=== PATIENT | female | born 1985 | race Caucasian/White ===

== ENCOUNTER 2016-10-31 14:28 | Emergency (ER) | payer MEDICAID ==
[~2016-10-31] VITALS: Ht 177.8 cm; Wt 122.2 kg
[~2016-10-31 14:28] MED LIST: ACHYD1T PO; ALPR1T PO; AMIT50TA3 PO; BCP; CALC1TAB29; CEFP500T4 PO; CEPH500C PO; CLIN-62 PO; CLIN300C3 PO; CLINDAMYCIN PO; DCS100C PO; DESV100T PO; DOXY100C2 PO; GFCD10B PO; HYDR-3729 PO; IBP800T PO; IBUP-2055 PO; LANS30CA8 PO; METH4TAB PO; METR500T PO; NITR-65 PO; NITR100C3 PO; PNV1CAPS13; PREN1TAB14 PO; TOPI50TA37 PO; TRIA16.5 NS; VANCADD1 IV
[2016-10-31] MEDS ORDERED: KETOROLAC 60 MG/2 ML VIAL IM STA (14:57)
[2016-10-31] MEDS ORDERED: guaiFENesin (MUCINEX) 600 MG TAB PO ONE (15:45)
--- NOTE | 2016-10-31 15:47 | ED EENT ---
History of Present Illness General Chief Complaint: Oral/Throat Problems Stated Complaint: DIFFICULTY BREATHING,THROAT PROBLEMS Nursing Triage Note: AMB TO ROOM C/O SORETHRAOT X3 DAYS THROAT RED History of Present Illness Time seen by provider: 14:30 Initial Comments Evaluation for cough and sore throat. She has a history of allergic rhinitis and is taking Claritin. Timing/Duration: intermittent, other (3 days) Severity: moderate Location: throat Prearrival Treatment: over the counter meds Modifying Factors: Improves With Rest Associated Symptoms: cough, No facial pain/swelling, nasal congestion/drainage , poor fluid intake, poor solids intake, No sinus infection, sore throat, No tooth pain, No voice change Allergies and Home Medications Allergies Coded Allergies: Penicillins (Verified Allergy, Severe, HIVES, CAN'T BREATHE, 08/06/12) latex (Verified Allergy, Unknown, 08/06/12) Home Medications Hydrocodone/Acetaminophen 1 Each Tablet, 1-2 EACH PO Q6H PRN for PAIN, #30 Prescribed by: LIBERTY VELA on 07/24/15 1240 Ibuprofen 200 Mg Tablet, 800 MG PO Q6H PRN for PAIN, (Reported) take 4 (200mg) tabs Topiramate 50 Mg Tablet, 50 MG PO BID, (Reported) Review of Systems Constitutional: no symptoms reported, see HPI Eyes: No Symptoms Reported, See HPI Ears: No Symptoms Reported, See HPI Nose: see HPI, clear discharge Mouth: no symptoms reported, see HPI Throat: no symptoms reported, see HPI Respiratory: see HPI, cough Cardiovascular: no symptoms reported, see HPI Gastrointestinal: no symptoms reported, see HPI Musculoskeletal: no symptoms reported, see HPI Skin: no symptoms reported, see HPI Neurological: No Symptoms Reported, See HPI Hematologic/Lymphatic: No Symptoms Reported, See HPI Immunological/Allergic: no symptoms reported, see HPI All Other Systems Reviewed Negative Unless Noted: Yes Past Htjhwat-Ddfmgr-Nvbyrw Hx Patient Social History Alcohol Use: Denies Use Recreational Drug Use: No Smoking Status: Current Everyday Smoker Recent Foreign Travel: No Contact w/Someone Who Travel: No Recent Infectious Disease Expo: No Recent Hopitalizations: Yes Immunizations Up To Date Date of Influenza Vaccine: Feb 24, 2012 Surgeries HX Surgeries: Yes (C/S X3) Respiratory Hx Respiratory Disorders: No Cardiovascular Hx Cardiac Disorders: No Neurological Hx Neurological Disorders: No Reproductive System Hx Reproductive Disorders: Yes Sexually Transmitted Disease: No Genitourinary Hx Genitourinary Disorders: No Gastrointestinal Hx Gastrointestinal Disorders: No Musculoskeletal Hx Musculoskeletal Disorders: No Endocrine Hx Endocrine Disorders: No HEENT HX ENT Disorders: Yes (NO TEETH) Cancer Hx Cancer: No Psychosocial Hx Psychiatric Problems: No Integumentary HX Skin/Integumentary Disorder: No Blood Transfusions Hx Blood Disorders: No Physical Exam Vital Signs Vital Sign - Last 12Hours 10/31/16 14:32 Temp 98.1 Pulse 80 Resp 18 B/P (MAP) 166/87 Pulse Ox 98 O2 Delivery Room Air General Appearance: WD/WN, no apparent distress Eyes: bilateral eye EOMI, bilateral eye PERRL, bilateral eye normal inspection Ears: bilateral ear TM normal, bilateral ear auricle normal, bilateral ear canal normal Nose: normal inspection, No sinus tenderness Mouth/Throat: normal mouth inspection, pharynx normal, No dental tenderness, No excessive drooling, No tonsillar exudate, No tonsillar swelling, No uvula swelling, No voice changes, other (clear postnasal drainage noted) Neck: non-tender, full range of motion, supple, normal inspection, No lymphadenopathy (R), No lymphadenopathy (L) Cardiovascular: normal peripheral pulses, regular rate, rhythm, no edema Respiratory: chest non-tender, lungs clear, normal breath sounds, no respiratory distress Gastrointestinal: normal bowel sounds, non tender, soft, no organomegaly, no pulsatile mass Neurologic/Psychiatric: no motor/sensory deficits, alert, normal mood/affect, oriented x 3 Skin: normal color, warm/dry Progress/Results/Core Measures Results/Orders Lab Results Laboratory Tests Test 10/31/16 14:43 Range/Units Group A Streptococcus Screen NEGATIVE NEGATIVE My Orders Orders - REMEDIOS DANGELO Rapid Strep A Screen (10/31/16 14:46) Ketorolac Injection (Toradol Injection) (10/31/16 14:57) Guaifenesin Tablet (Mucinex Tablet) (10/31/16 15:45) Medications Given in ED Current Medications Medications Dose Ordered Sig/Zoraida Route Start Time Stop Time Status Last Admin Dose Admin Guaifenesin 600 mg ONCE ONCE PO 10/31/16 15:45 10/31/16 15:46 DC 10/31/16 16:11 600 MG Vital Signs/I&O Vital Sign - Last 12Hours 10/31/16 10/31/16 14:32 16:10 Temp 98.1 98.1 Pulse 80 80 Resp 18 18 B/P (MAP) 166/87 Pulse Ox 98 98 O2 Delivery Room Air Blood Pressure Mean: 113 Departure Impression Impression: Primary Impression: Allergic rhinitis Qualified Codes: J30.2 - Other seasonal allergic rhinitis Additional Impression: Cough Disposition: HOME, SELF-CARE Condition: Improved Departure-Patient Inst. Decision time for Depature: 15:30 Referrals: MARIAM JOSHI MD (PCP/Family) Primary Care Physician Patient Instructions: Cough, Adult (DC), Seasonal Allergies (DC) Add. Discharge Instructions: Warm salt water gargles, every 2 hours. Continue taking Claritin. Use [id number]-exxpzyp Mucinex as directed. Increase water intake. Sinus rinse, every 3-4 hours. Follow-up with Dr. Joshi next week if symptoms persist. Alternate between Tylenol 650 mg and ibuprofen 600 mg every 4 hours as needed for sore throat. Return to emergency department for difficulty breathing, fevers, new problems or concerns. All discharge instructions reviewed with patient and/or family. Voiced understanding. REMEDIOS DANGELO Oct 31, 2016 15:47
[2016-10-31 16:10] VITALS: BP 166/87
== END 2016-10-31 16:12 | disposition home or self-care (01) ==
LOC: EDUNIT# 14:28 → ER 14:30
DX: J30.9 Allergic rhinitis, unspecified (principal); J02.9 Acute pharyngitis, unspecified
CPT/HCPCS: 87430; 99282

== ENCOUNTER 2017-06-01 13:30 | Emergency (ER) | payer MEDICAID ==
[~2017-06-01] VITALS: Ht 177.8 cm; Wt 117.9 kg
[2017-06-01] MEDS ORDERED: RT-ALBUTEROL/IPRATROPIUM 3 ML (DUONEB) VIAL INH ONE (14:15)
[2017-06-01] MEDS ORDERED: ESCI10TA (14:16)
[2017-06-01] MEDS ORDERED: LORA-404 (14:16)
[2017-06-01] MEDS ORDERED: RT-ALBUINH IH (14:18)
--- NOTE | 2017-06-01 14:18 | ED Cough/URI ---
General Chief Complaint: Cough/Cold/Flu Symptoms Stated Complaint: COUGH Nursing Triage Note: PT STATES HAS COLD COUGH FLU Source: patient Exam Limitations: no limitations History of Present Illness Time seen by provider: 14:15 Initial Comments Three-day history of cough, "needles in my lungs", body aches, fever. Smokes one pack of cigarettes per day. Would also like her and 4 children to be checked for influenza in the emergency room as well as they all have similar symptoms with similar onset. Timing/Duration: constant Severity/Quality: dry cough Associated Symptoms: cough Allergies and Home Medications Allergies Coded Allergies: Penicillins (Verified Allergy, Severe, HIVES, CAN'T BREATHE, 08/06/12) latex (Verified Allergy, Unknown, 08/06/12) Home Medications Hydrocodone/Acetaminophen 1 Each Tablet, 1-2 EACH PO Q6H PRN for PAIN, #30 Prescribed by: LIBERTY VELA on 07/24/15 1240 Ibuprofen 200 Mg Tablet, 800 MG PO Q6H PRN for PAIN, (Reported) take 4 (200mg) tabs Topiramate 50 Mg Tablet, 50 MG PO BID, (Reported) Constitutional: see HPI, chills, fever EENTM: see HPI Respiratory: see HPI, cough Cardiovascular: no symptoms reported Genitourinary: no symptoms reported Musculoskeletal: no symptoms reported Skin: no symptoms reported Psychiatric/Neurological: No Symptoms Reported Hematologic/Lymphatic: No Symptoms Reported Past Isgyjrv-Gvksai-Pzuvsw Hx Patient Social History Alcohol Use: Denies Use Recreational Drug Use: No Smoking Status: Current Everyday Smoker Type Used: Cigarettes Recent Foreign Travel: No Contact w/Someone Who Travel: No Recent Infectious Disease Expo: No Recent Hopitalizations: No Immunizations Up To Date Date of Influenza Vaccine: Feb 24, 2012 Surgeries History of Surgeries: Yes (C/S X3) Respiratory History of Respiratory Disorde: No Cardiovascular History of Cardiac Disorders: No Neurological History of Neurological Disord: No Reproductive System : No (UTERINE ABLATION) Hx Reproductive Disorders: Yes Sexually Transmitted Disease: No Gastrointestinal History of Gastrointestinal Di: No Musculoskeletal History of Musculoskeletal Dis: No Endocrine History of Endocrine Disorders: No Cancer History of Cancer: No Psychosocial History of Psychiatric Problem: No Integumentary History of Skin or Integumenta: No Blood Transfusions History of Blood Disorders: No Physical Exam Vital Signs Vital Sign - Last 12Hours 06/01/17 13:30 Temp 97.5 Pulse 89 Resp 18 B/P (MAP) 156/85 (108) Pulse Ox 99 Capillary Refill : Less Than 3 Seconds General Appearance: WD/WN, no apparent distress Eyes: Bilateral Eye Normal Inspection, Bilateral Eye PERRL, Bilateral Eye EOMI HEENT: PERRL/EOMI, normal ENT inspection, TMs normal Neck: non-tender, full range of motion Respiratory: normal breath sounds, no respiratory distress, no accessory muscle use Cardiovascular: regular rate, rhythm, no murmur Gastrointestinal: normal bowel sounds, non tender, soft Neurologic/Psychiatric: alert, normal mood/affect, oriented x 3 Skin: normal color, warm/dry Progress/Results/Core Measures Suspected Sepsis Recent Fever Within 48 Hours: Yes Infection Criteria Present: None New/Unexplained Altered Menta: No Sepsis Screen: No Definite Risk Sepsis Diagnosis: SIRS Temperature:97.5 Pulse: 89 Respiratory Rate: 18 Blood Pressure 156 /85 Mean: 108 Results/Orders My Orders Orders - JOSE STAFFORD APRN Chest Pa/Lat (2 View) (06/01/17 14:04) Albuterol/Ipra Inhalation Soln (Duoneb I (06/01/17 14:15) Svn Sm Volume Nebulizer Rt-Rfs (06/01/17 14:04) Vital Signs/I&O Vital Sign - Last 12Hours 06/01/17 13:30 Temp 97.5 Pulse 89 Resp 18 B/P (MAP) 156/85 (108) Pulse Ox 99 Capillary Refill : Less Than 3 Seconds Blood Pressure Mean: 108 Departure Impression Impression: Primary Impression: Influenza Disposition: 01 HOME, SELF-CARE Condition: Stable Departure-Patient Inst. Decision time for Depature: 14:17 Referrals: MARIAM JOSHI MD (PCP/Family) Primary Care Physician Patient Instructions: Flu Add. Discharge Instructions: Fpak-rgw-epszjfk Robitussin as needed. Tylenol and Motrin for fevers and body aches. Use the inhaler 2 puffs every 4 hours as needed for shortness of breath and wheezing. Symptoms last 5-7 days. Follow-up with your doctor for recheck. If you're employed you should not return to work until Scripts Albuterol Sulfate (PROAIR HFA) 1 Puff Puff 2 PUFF IH Q4H, #1 PUFF 1 PUFF = 90 MCG Prov: JOSE STAFFORD APRN 06/01/17 Work/School Note: Work Release Form Date Seen in the Emergency Department: Jun 01, 2017 Return to Work: Jun 05, 2017 Restrictions: No Restrictions JOSE STAFFORD APRN Jun 01, 2017 14:18
--- NOTE | 2017-06-01 14:57 | Diagnostic Imaging Report ---
Patient History: Shortness of air, cough, congestion. Technique: Two views of the chest Comparison: 09/07/2012 FINDINGS: The lung volumes are normal. No focal consolidation is seen. No large pleural effusion or pneumothorax is seen. The cardiomediastinal silhouette is normal in size and contour. No acute osseous abnormality is seen. IMPRESSION: No acute pulmonary abnormality seen. Dictated by: Dictated on workstation # [id number]
[2017-06-01 15:04] VITALS: BP 156/85
== END 2017-06-01 15:04 | disposition home or self-care (01) ==
LOC: EDUNIT# 13:30 → ER 13:32
DX: J11.1 Influenza due to unidentified influenza virus with other respiratory manifestations (principal); F17.210 Nicotine dependence, cigarettes, uncomplicated
CPT/HCPCS: 71046; 94640; 99282

== ENCOUNTER 2017-06-24 10:48 | Emergency (ER) | payer MEDICAID ==
[~2017-06-24] VITALS: Ht 180.3 cm; Wt 113.4 kg
[~2017-06-24 10:48] MED LIST changes: +ESCI10TA; +LORA-404; +RT-ALBUINH IH
--- NOTE | 2017-06-24 11:47 | ED Abdominal Pain ---
General Chief Complaint: Abdominal/GI Problems Stated Complaint: ABD PAIN Source of Information: Patient Exam Limitations: No Limitations History of Present Illness Date Seen by Provider: Jun 24, 2017 Time Seen by Provider: 11:46 Initial Comments To ER with reports of suprapubic and right lower quadrant abdominal pain that began last night with chills but no fever. Nausea but no vomiting. smAll bowel movement yesterday. Timing/Duration: 1-2 Days Severity/Quality: Moderate, Severe Location: RLQ, Suprapubic Radiation: No Radiation Activities at Onset: None Associated Symptoms: Denies Symptoms Allergies and Home Medications Allergies Coded Allergies: Penicillins (Verified Allergy, Severe, HIVES, CAN'T BREATHE, 08/06/12) latex (Verified Allergy, Unknown, 08/06/12) Home Medications Albuterol Sulfate 1 Puff Puff, 2 PUFF IH Q4H, #1 1 PUFF = 90 MCG Prescribed by: JOSE STAFFODR on 06/01/17 1418 Escitalopram Oxalate 10 Mg Tablet, (Reported) Ibuprofen 200 Mg Tablet, 800 MG PO Q6H PRN for PAIN, (Reported) take 4 (200mg) tabs Lorazepam 0.5 Mg Tablet, (Reported) Review of Systems Constitutional: see HPI EENTM: No Symptoms Reported Respiratory: No Symptoms Reported Cardiovascular: No Symptoms Reported Gastrointestinal: See HPI, Abdominal Pain Genitourinary: No Symptoms Reported Musculoskeletal: no symptoms reported Skin: no symptoms reported Psychiatric/Neurological: No Symptoms Reported Endocrine: No Symptoms Reported Past Tdvgwqi-Octkzx-Xkuekh Hx Patient Social History Type Used: Cigarettes Recent Foreign Travel: No Contact w/Someone Who Travel: No Recent Hopitalizations: No Immunizations Up To Date Date of Influenza Vaccine: Feb 24, 2012 Surgeries History of Surgeries: Yes (C/S X3) Respiratory History of Respiratory Disorde: No Cardiovascular History of Cardiac Disorders: No Neurological History of Neurological Disord: No Reproductive System Hx Reproductive Disorders: Yes Sexually Transmitted Disease: No Gastrointestinal History of Gastrointestinal Di: No Musculoskeletal History of Musculoskeletal Dis: No Endocrine History of Endocrine Disorders: No Cancer History of Cancer: No Psychosocial History of Psychiatric Problem: No Integumentary History of Skin or Integumenta: No Blood Transfusions History of Blood Disorders: No Physical Exam Vital Signs VS - Last 72 Hours, by Label 06/24/17 11:36 Temp 98.2 Pulse 59 Resp 18 B/P (MAP) 137/80 (99) Pulse Ox 98 Capillary Refill : General Appearance: WD/WN, no apparent distress HEENT: PERRL/EOMI, normal ENT inspection Neck: non-tender, full range of motion Respiratory: no respiratory distress, no accessory muscle use Gastrointestinal: normal bowel sounds, soft, tenderness (supra pubic and right lower) Extremities: normal range of motion, non-tender Neurologic/Psychiatric: alert, normal mood/affect, oriented x 3 Skin: normal color, warm/dry Progress/Results/Core Measures Results/Orders Lab Results Laboratory Tests Test 06/24/17 11:48 06/24/17 11:55 Range/Units White Blood Count 7.6 4.3-11.0 10^3/uL Red Blood Count 5.05 4.35-5.85 10^6/uL Hemoglobin 14.8 11.5-16.0 G/DL Hematocrit 44 35-52 % Mean Corpuscular Volume 86 80-99 FL Mean Corpuscular Hemoglobin 29 25-34 PG Mean Corpuscular Hemoglobin Concent 34 32-36 G/DL Red Cell Distribution Width 13.3 10.0-14.5 % Platelet Count 200 130-400 10^3/uL Mean Platelet Volume 10.2 7.4-10.4 FL Neutrophils (%) (Auto) 76 H 42-75 % Lymphocytes (%) (Auto) 18 12-44 % Monocytes (%) (Auto) 5 0-12 % Eosinophils (%) (Auto) 0 0-10 % Basophils (%) (Auto) 0 0-10 % Neutrophils # (Auto) 5.8 1.8-7.8 X 10^3 Lymphocytes # (Auto) 1.4 1.0-4.0 X 10^3 Monocytes # (Auto) 0.4 0.0-1.0 X 10^3 Eosinophils # (Auto) 0.0 0.0-0.3 10^3/uL Basophils # (Auto) 0.0 0.0-0.1 10^3/uL Sodium Level 141 135-145 MMOL/L Potassium Level 3.7 3.6-5.0 MMOL/L Chloride Level 112 H 98-107 MMOL/L Carbon Dioxide Level 21 21-32 MMOL/L Anion Gap 8 5-14 MMOL/L Blood Urea Nitrogen 9 7-18 MG/DL Creatinine 0.97 0.60-1.30 MG/DL Estimat Glomerular Filtration Rate > 60 BUN/Creatinine Ratio 9 Glucose Level 108 H 70-105 MG/DL Calcium Level 9.2 8.5-10.1 MG/DL Total Bilirubin 0.3 0.1-1.0 MG/DL Aspartate Amino Transf (AST/SGOT) 19 5-34 U/L Alanine Aminotransferase (ALT/SGPT) 21 0-55 U/L Alkaline Phosphatase 94 40-136 U/L Total Protein 7.3 6.4-8.2 GM/DL Albumin 4.0 3.2-4.5 GM/DL Urine Color YELLOW Urine Clarity VERY CLOUDY H Urine pH 5 5-9 Urine Specific Mulga 1.025 H 1.016-1.022 Urine Protein 1+ H NEGATIVE Urine Glucose (UA) NEGATIVE NEGATIVE Urine Ketones NEGATIVE NEGATIVE Urine Nitrite NEGATIVE NEGATIVE Urine Bilirubin NEGATIVE NEGATIVE Urine Urobilinogen NORMAL NORMAL MG/DL Urine Leukocyte Esterase 1+ H NEGATIVE Urine RBC (Auto) 2+ H NEGATIVE Urine RBC 0-2 /HPF Urine WBC 2-5 /HPF Urine Squamous Epithelial Cells 5-10 /HPF Urine Crystals PRESENT H /LPF Urine Calcium Oxalate Crystals FEW H /LPF Urine Bacteria MODERATE H /HPF Urine Casts NONE /LPF Urine Mucus MODERATE H /LPF Urine Culture Indicated YES My Orders Orders - JOSE STAFFORD QUALITY COMPLIANCE CONSULTANT Cbc With Automated Diff (06/24/17 11:40) Comprehensive Metabolic Panel (06/24/17 11:40) Ua Culture If Indicated (06/24/17 11:40) Urine Bedside (06/24/17 11:40) Saline Lock/Iv-Start (06/24/17 11:40) Urine Culture (06/24/17 11:55) Ct Abdomen/Pelvis W (06/24/17 12:50) Iohexol Injection (Omnipaque 350 Mg/Ml 1 (06/24/17 13:00) Sodium Chloride Flush (Catheter Flush Sy (06/24/17 13:00) Medications Given in ED Current Medications Medications Dose Ordered Sig/Zoraida Route Start Time Stop Time Status Last Admin Dose Admin Iohexol 100 ml ONCE ONCE IV 06/24/17 13:00 06/24/17 13:01 DC 06/24/17 13:11 100 ML Sodium Chloride 10 ml NEEDED PRN IV 06/24/17 13:00 06/24/17 13:12 10 ML Vital Signs/I&O Vital Sign - Last 12Hours 06/24/17 11:36 Temp 98.2 Pulse 59 Resp 18 B/P (MAP) 137/80 (99) Pulse Ox 98 Departure Impression Impression: Primary Impression: RLQ abdominal pain Disposition: 01 HOME, SELF-CARE Condition: Stable Departure-Patient Inst. Decision time for Depature: 13:51 Referrals: MARIAM JOSHI MD (PCP/Family) Primary Care Physician Patient Instructions: Acute Abdomen (Belly Pain), Adult (DC) Add. Discharge Instructions: 1. Go to [employer] or [employer] and purchase magnesium citrate. This is a laxative. Take today and see if this helps. Return to ER for pain, worsening symptoms or fevers. Follow-up with your doctor this week for recheck. All discharge instructions reviewed with patient and/or family. Voiced understanding. JOSE STAFFORD APRN Jun 24, 2017 11:47
[2017-06-24 11:57] LABS: BASOPHILS % (AUTO) 0 % (0-10); EOSINOPHILS % (AUTO) 0 % (0-10); HEMATOCRIT 44 % (35-52); HEMOGLOBIN 14.8 G/DL (11.5-16.0); LYMPHOCYTES # (AUTO) 1.4 X 10^3 (1.0-4.0); LYMPHOCYTES % (AUTO) 18 % (12-44); MEAN CORPUSCULAR HEMOGLOBIN 29 PG (25-34); MEAN CORPUSCULAR HGB CONC 34 G/DL (32-36); MEAN CORPUSCULAR VOLUME 86 FL (80-99); MEAN PLATELET VOLUME 10.2 FL (7.4-10.4); MONOCYTES # (AUTO) 0.4 X 10^3 (0.0-1.0); MONOCYTES % (AUTO) 5 % (0-12); NEUTROPHILS # (AUTO) 5.8 X 10^3 (1.8-7.8); NEUTROPHILS % (AUTO) 76 % (42-75); PLATELET COUNT 200 10^3/uL (130-400); RED BLOOD COUNT 5.05 10^6/uL (4.35-5.85); RED CELL DISTRIBUTION WIDTH 13.3 % (10.0-14.5); WHITE BLOOD COUNT 7.6 10^3/uL (4.3-11.0)
[2017-06-24 12:10] LABS: BILIRUBIN,URINE NEGATIVE (NEGATIVE); CLARITY,URINE VERY CLOUDY; COLOR,URINE YELLOW; GLUCOSE, URINE (UA) NEGATIVE (NEGATIVE); KETONES,URINE NEGATIVE (NEGATIVE); LEUKOCYTE ESTERASE ,URINE 1+ (NEGATIVE); NITRITE,URINE NEGATIVE (NEGATIVE); PH,URINE 5 (5-9); PROTEIN,URINE 1+ (NEGATIVE); UROBILINOGEN,URINE NORMAL (NORMAL)
[2017-06-24 12:13] LABS: ALANINE AMINOTRANSFERASE 21 U/L (0-55); ALKALINE PHOSPHATASE 94 U/L (40-136); BILIRUBIN,TOTAL 0.3 MG/DL (0.1-1.0); BUN/CREATININE RATIO 9; CALCIUM 9.2 MG/DL (8.5-10.1); CARBON DIOXIDE 21 MMOL/L (21-32); CHLORIDE 112 MMOL/L (98-107); CREATININE SERUM 0.97 MG/DL (0.60-1.30); GFR ESTIMATED > 60; GLUCOSE 108 MG/DL (70-105); POTASSIUM 3.7 MMOL/L (3.6-5.0); SODIUM 141 MMOL/L (135-145); TOTAL PROTEIN 7.3 GM/DL (6.4-8.2)
[2017-06-24 12:40] LABS: BACTERIA,URINE MODERATE /HPF; CALCIUM OXALATE CRYSTALS,UR FEW /LPF; RBC,URINE 0-2 /HPF
[2017-06-24] MEDS ORDERED: IOHEXOL 350 MG/ML 100 ML (OMNIPAQUE 350) VIAL IV ONE (13:00)
[2017-06-24] MEDS ORDERED: CATHETER FLUSH 10 ML SYR IV PRN (13:00)
--- NOTE | 2017-06-24 13:38 | Diagnostic Imaging Report ---
PROCEDURE: CT abdomen and pelvis with contrast. TECHNIQUE: Multiple contiguous axial images were obtained through the abdomen and pelvis after administration of intravenous contrast. INDICATION: Right lower quadrant pain and nausea. COMPARISON: Comparison is made with prior CT from 09/01/2012. FINDINGS: The lung bases are clear. The liver and gallbladder are unremarkable. Pancreas and spleen are unremarkable. No adrenal mass is detected. Kidneys demonstrate some cortical scarring but no other significant abnormality seen. Aorta is nonaneurysmal. The small and large bowel loops are of normal caliber. There is no ascites. The appendix is visualized and unremarkable. There are shotty lymph nodes identified in the central retroperitoneum, similar to study dating back to 2012 and nonspecific. Shotty mesenteric lymph nodes are present as well. No iliac or inguinal lymphadenopathy is seen. The bladder is unremarkable. No pelvic mass is identified. IMPRESSION: Stable CT when compared with study dating back 09/01/2012. No acute feature in the abdomen or pelvis is identified. Dictated by: Dictated on workstation # [id number]
[2017-06-24 14:48] VITALS: BP 126/92
== END 2017-06-24 14:48 | disposition home or self-care (01) ==
LOC: EDUNIT# 10:48 → ER 10:50
DX: R10.31 Right lower quadrant pain (principal); Z88.0 Allergy status to penicillin; Z87.59 Personal history of other complications of pregnancy, childbirth and the puerperium
CPT/HCPCS: 36415; 74177; 80053; 81000; 84703; 85025; 87088

== ENCOUNTER 2017-11-11 05:31 | Outpatient (CLI) | payer MEDICAID ==
[~2017-11-11] VITALS: Ht 180.3 cm; Wt 113.4 kg
== END 2017-11-11 15:49 | disposition home or self-care (01) ==
LOC: PREOP 05:31
PROVIDERS: ATTEND Obstetrics & Gynecology
DX: Z01.818 Encounter for other preprocedural examination (principal)

== ENCOUNTER 2018-09-06 16:04 | Emergency (ER) | payer BC, OTHER ==
[~2018-09-06] VITALS: Ht 180.3 cm; Wt 99.8 kg
[~2018-09-06 16:04] MED LIST changes: +ACHD5005 PO; +IBUP-1773 PO
[2018-09-06] MEDS ORDERED: TRIAMCINOLONE 0.1% CR (KENALOG) 15 GM TUBE ONE (16:42)
--- NOTE | 2018-09-06 16:42 | ED EENT ---
History of Present Illness General Chief Complaint: Eye Problems Stated Complaint: L EYE PAIN,SWELLING Nursing Triage Note: PT AMB TO RM 9 WITH COMPLAINT OF LEFT EYE REDNESS, SWELLING, AND BLURRED VISION. STATES SHE WOKE UP WITH SYMPTOMS TWO DAYS AGO. Source: patient Exam Limitations: no limitations History of Present Illness Date Seen by Provider: Sep 06, 2018 Time Seen by Provider: 16:37 Initial Comments This 31-year-old white female presents with an itching rash around her left eye that has been present for the last 2 days. The patient's vision is felt somewhat blurred due to the swelling. Patient has had a similar rash from poison joaquin when she was child. Patient denies fever, chills, headache, stiff neck, or other remarkable complaint. Allergies and Home Medications Allergies Coded Allergies: Penicillins (Verified Allergy, Severe, HIVES, CAN'T BREATHE, 08/06/12) latex (Verified Allergy, Unknown, 08/06/12) Home Medications Hydrocodone Bit/Acetaminophen 1 Tab Tab, 2 TAB PO Q6H PRN for PAIN-MODERATE Prescribed by: ARVIN KELLEY on 11/20/17 0833 Ibuprofen 600 Mg Tablet, 600 MG PO Q6H Prescribed by: ARVIN KELLEY on 11/20/17 0833 Patient Home Medication List Home Medication List Reviewed: Yes Review of Systems Review of Systems Constitutional: No chills, No fever Eyes: See HPI, Blurred Vision, Other Ears: No Symptoms Reported Nose: no symptoms reported Mouth: no symptoms reported Throat: no symptoms reported Respiratory: no symptoms reported Cardiovascular: no symptoms reported Gastrointestinal: No abdominal pain, No nausea, No vomiting Musculoskeletal: no symptoms reported Skin: see HPI, other (there is an urticaria about the left eye suggestive of a contact dermatitis) Neurological: See HPI Hematologic/Lymphatic: No Symptoms Reported Immunological/Allergic: no symptoms reported Past Dfivzxa-Rerckp-Pconac Hx Past Med/Social Hx: Reviewed Nursing Past Med/Soc Hx Patient Social History Alcohol Use: Denies Use Recreational Drug Use: No Type Used: Cigarettes Recent Foreign Travel: No Contact w/Someone Who Travel: No Recent Infectious Disease Expo: No Recent Hopitalizations: No Immunizations Up To Date Date of Influenza Vaccine: Feb 24, 2012 Seasonal Allergies Seasonal Allergies: No Past Medical History Surgeries: Yes (C/S X3, UTERINE ABLATION) Tubal Ligation Respiratory: No Cardiac: No Neurological: No Reproductive Disorders: Yes Sexually Transmitted Disease: No Genitourinary: No Gastrointestinal: No Musculoskeletal: No Endocrine: No HEENT: No Cancer: No Psychosocial: No Integumentary: No Blood Disorders: No Physical Exam Vital Signs Vital Signs - First Documented 09/06/18 16:10 Temp 98.0 Pulse 76 Resp 13 B/P (MAP) 117/73 (88) Pulse Ox 99 O2 Delivery Room Air Height, Weight, BMI Height: 5'11.00" Weight: 220lbs. 0.0oz. 99.055522vv; 34.9 BMI Method:Stated General Appearance: no apparent distress Eyes: left eye other (there is no apparent contact dermatitis to left periorbital area. The sclera of the left eye is unremarkable.) Nose: normal inspection Mouth/Throat: normal mouth inspection Cardiovascular: regular rate, rhythm Respiratory: lungs clear Gastrointestinal: normal bowel sounds Neurologic/Psychiatric: no motor/sensory deficits, alert, normal mood/affect Skin: normal color, warm/dry, other (contact dermatitis to left periorbital region) Progress/Results/Core Measures Results/Orders My Orders Orders - FRANKIE MCKENNA MD Triamcinolone 0.1% Cream 15 Gm (Kenalog (09/06/18 21:00) Vital Signs/I&O 09/06/18 16:10 Temp 98.0 Pulse 76 Resp 13 B/P (MAP) 117/73 (88) Pulse Ox 99 O2 Delivery Room Air Blood Pressure Mean: 88 Progress Progress Note : Time: 16:42 Progress Note I discussed findings with the patient. We obtained triamcinolone ointment 0.1 percent which we sparingly applied to the left periorbital region. Departure Impression Primary Impression: Contact dermatitis Qualified Codes: L25.9 - Unspecified contact dermatitis, unspecified cause Disposition: 01 HOME, SELF-CARE Condition: Improved Departure-Patient Inst. Decision time for Depature: 16:43 Referrals: MARIAM JOSHI MD (PCP/Family) Primary Care Physician Patient Instructions: Contact Dermatitis (DC) Add. Discharge Instructions: Apply triamcinolone sparingly the left periorbital area twice a day. Close follow-up with your doctor tomorrow. Return if any problems or questions. No work tonight. All discharge instructions reviewed with patient and/or family. Voiced understanding. FRANKIE MCKENNA MD Sep 06, 2018 16:42
[2018-09-06 16:50] VITALS: BP 117/73
[2018-09-06] MEDS ORDERED: TRIAMCINOLONE 0.1% CR (KENALOG) 15 GM TUBE TOP SCH (21:00)
== END 2018-09-06 16:50 | disposition home or self-care (01) ==
LOC: EDUNIT# 16:04 → ER 16:05
DX: L25.9 Unspecified contact dermatitis, unspecified cause (principal); Z88.0 Allergy status to penicillin; Z91.040 Latex allergy status; Z98.51 Tubal ligation status
CPT/HCPCS: 99282

== ENCOUNTER 2019-07-06 05:36 | Outpatient (CLI) | payer BC ==
[~2019-07-06] VITALS: Ht 177.8 cm; Wt 96.4 kg
[~2019-07-06 05:36] MED LIST changes: -IBUP-2055 PO; +IBUP-2473 PO
[2019-07-06] MEDS ORDERED: LINA145C PO (09:38)
== END 2019-07-06 09:39 | disposition home or self-care (01) ==
LOC: PREOP 05:36
PROVIDERS: ATTEND Surgery
DX: Z01.818 Encounter for other preprocedural examination (principal)

== ENCOUNTER 2020-09-15 16:54 | Emergency (ER) | payer BC ==
[~2020-09-15] VITALS: Ht 177.8 cm; Wt 90.7 kg
[~2020-09-15 16:54] MED LIST changes: +LINA145C PO
[2020-09-15 17:00] VITALS: BP 117/79
--- NOTE | 2020-09-15 17:52 | ED Upper Extremity ---
General Chief Complaint: Upper Extremity Stated Complaint: L HAND INJ Nursing Triage Note: PT AMB TO TRIAGE WITH COMPLAINT OF LEFT HAND SWELLING AND BRUISING AFTER HITTING A DOG IN THE HEAD. PT STATES DOG WAS ATTACKING HER DOG AND SHE BEAT IT OFF WITH HER HAND. DENIES DOG BITE OR ANY OTHER INJURY. Nursing Sepsis Screen: No Definite Risk Source: patient Exam Limitations: no limitations History of Present Illness Date Seen by Provider: Sep 15, 2020 Time Seen by Provider: 17:20 Initial Comments Patient has bruising swelling and pain to the lateral aspect of the dorsum of the left hand after punching a dog to get it off of her dog. No open wounds. This occurred just prior to arrival. Onset: just prior to arrival Severity: moderate Pain/Injury Location: left hand Method of Injury: direct blow Modifying Factors: Worse With Movement Allergies and Home Medications Allergies Coded Allergies: Penicillins (Verified Allergy, Severe, HIVES, CAN'T BREATHE, 08/06/12) latex (Verified Allergy, Unknown, 08/06/12) Home Medications Linaclotide 145 Mcg Capsule, 145 MCG PO DAILY, (Reported) Patient Home Medication List Home Medication List Reviewed: Yes Review of Systems Constitutional: see HPI EENTM: see HPI Respiratory: no symptoms reported Cardiovascular: no symptoms reported Genitourinary: no symptoms reported Musculoskeletal: see HPI Skin: no symptoms reported Psychiatric/Neurological: No Symptoms Reported Past Sjeqjvv-Folzsv-Jvfzup Hx Patient Social History Alcohol Use: Denies Use Drug of Choice: HISTORY OF METH USE UNTIL 2016 Smoking Status: Current Everyday Smoker Type Used: Cigarettes Recent Infectious Disease Expo: No Recent Hopitalizations: No Immunizations Up To Date Tetanus Booster (TDap): Unknown Date of Influenza Vaccine: Feb 24, 2012 Seasonal Allergies Seasonal Allergies: No Past Medical History Surgeries: Yes (C/S X3, UTERINE ABLATION) Oophorectomy, Tubal Ligation Respiratory: No Cardiac: No Neurological: No Reproductive Disorders: Yes Sexually Transmitted Disease: No Genitourinary: No Gastrointestinal: Yes Gastroesophageal Reflux Musculoskeletal: No Endocrine: No HEENT: No Cancer: No Psychosocial: No Integumentary: No Blood Disorders: No Physical Exam Vital Signs Vital Signs - First Documented 09/15/20 17:00 Temp 36.8 Pulse 82 Resp 17 B/P (MAP) 117/79 (92) Pulse Ox 98 O2 Delivery Room Air Capillary Refill : Less Than 3 Seconds Height, Weight, BMI Height: 5'11.00" Weight: 220lbs. 0.0oz. 99.870796rg; 28.00 BMI Method:Stated General Appearance: WD/WN, no apparent distress Respiratory: no respiratory distress, no accessory muscle use Shoulder: normal inspection, non-tender Elbow/Forearm: normal inspection, non-tender Wrist: Yes normal inspection, Yes non-tender Hand: Left, limited ROM, soft tissue tenderness, swelling Neurologic/Psychiatric: alert, normal mood/affect, oriented x 3 Skin: normal color, warm/dry Progress/Results/Core Measures Results/Orders My Orders Orders - JOSE STAFFORD APRN Hand, Left, 3 Views (09/15/20 17:34) Vital Signs/I&O 09/15/20 17:00 Temp 36.8 Pulse 82 Resp 17 B/P (MAP) 117/79 (92) Pulse Ox 98 O2 Delivery Room Air Blood Pressure Mean: 92 Diagnostic Imaging Diagonstic Imaging: Xray Comments NAME: FRIENDTAZ MED REC#: [id number] PT STATUS: REG ER : 1985 PHYSICIAN: JOSE STAFFORD APRN ADMIT DATE: 09/15/20/ER Draft Date of Exam:09/15/20 HAND, LEFT, 3 VIEWS INDICATION: Pain. FINDINGS: Three view left hand reveals arthritic joint space narrowing of the interphalangeal joints. There is no erosion. There is no fracture or dislocation. No bony destructive process. No foreign body or soft tissue gas. There is no focal soft tissue swelling to alert attention to any particular region of discomfort. IMPRESSION: No acute appearing abnormality. Dictated on workstation # [id number] Dict: 09/15/20 1752 Trans: 09/15/20 175 [facility] [id number] Interpreted by: FAYE GOMES Electronically signed by: Departure Impression Primary Impression: Contusion of hand Disposition: 01 HOME, SELF-CARE Condition: Stable Departure-Patient Inst. Decision time for Depature: 18:04 Referrals: MARIAM JOSHI MD (PCP/Family) Primary Care Physician Patient Instructions: Contusion (DC) Add. Discharge Instructions: 1. Ice pack to the hand. Tylenol and ibuprofen for pain control. Splint as directed. All discharge instructions reviewed with patient and/or family. Voiced understanding. JOSE STAFFORD SKIN CARE TECHNICIAN Sep 15, 2020 17:52
--- NOTE | 2020-09-15 17:56 | Diagnostic Imaging Report ---
INDICATION: Pain. FINDINGS: Three view left hand reveals arthritic joint space narrowing of the interphalangeal joints. There is no erosion. There is no fracture or dislocation. No bony destructive process. No foreign body or soft tissue gas. There is no focal soft tissue swelling to alert attention to any particular region of discomfort. IMPRESSION: No acute appearing abnormality. Dictated by: Dictated on workstation # [id number]
== END 2020-09-15 18:10 | disposition home or self-care (01) ==
LOC: EDUNIT# 16:54 → ER 16:56
DX: S60.222A Contusion of left hand, initial encounter (principal); F17.210 Nicotine dependence, cigarettes, uncomplicated; Z88.0 Allergy status to penicillin; Z91.040 Latex allergy status; W54.1XXA Struck by dog, initial encounter
CPT/HCPCS: 73130

== ENCOUNTER → 2021-01-22 | Outpatient (CLI) | payer BC ==
--- NOTE | 2021-01-22 18:47 | Diagnostic Imaging Report ---
INDICATION: History of left renal calculus. COMPARISON: CT dated 06/24/2017. FINDINGS: Single frontal radiographic view of the abdomen was obtained and demonstrates nondistended loops of small bowel. There is no large collection of free peritoneal air. Large calculus is again seen projecting over the left kidney. No other unexpected extraosseous calcifications or radiopaque foreign bodies are seen. Osseous structures show no gross acute abnormalities. IMPRESSION: 1. Nonobstructed small bowel gas pattern. 2. Left renal calculus. Dictated by: Dictated on workstation # [id number]
== END ==
LOC: RAD 16:50
PROVIDERS: ATTEND Urology
DX: N20.0 Calculus of kidney (principal)
CPT/HCPCS: 74018

== ENCOUNTER → 2021-09-19 | Outpatient (CLI) | payer BC ==
--- NOTE | 2021-09-19 15:40 | Diagnostic Imaging Report ---
INDICATION: Nephrolithiasis EXAMINATION: KUB at 2:28 PM. FINDINGS: There are some small opaque fragments projecting over the inferior pole of the left kidney. There is a 3 cm opacity projecting over the left ureter between the 4th and 5th transverse processes on the left. IMPRESSION: Small calculus fragments in the lower pole of the left kidney. Possible left mid ureteral calculus. Dictated by: Dictated on workstation # [id number]
== END ==
LOC: RAD 13:36
PROVIDERS: ATTEND Urology
DX: N20.0 Calculus of kidney (principal)
CPT/HCPCS: 74018

== ENCOUNTER → 2021-12-26 | Outpatient (CLI) | payer BC ==
--- NOTE | 2021-12-26 15:35 | Diagnostic Imaging Report ---
PROCEDURE: CT abdomen and pelvis without contrast. TECHNIQUE: Multiple contiguous axial images were obtained through the abdomen and pelvis without the use of intravenous contrast. Auto Exposure Controls were utilized during the CT exam to meet ALARA standards for radiation dose reduction. INDICATION: Kidney stones. COMPARISON: Correlation is made with the prior CT from 06/24/2017. FINDINGS: The lung bases are clear. The liver is unremarkable. The gallbladder is contracted. The pancreas and spleen are unremarkable. No adrenal mass is identified. The right kidney is unremarkable. The left kidney does show cortical scarring. There are several nonobstructing calculi on the left side with the largest approximately 4 mm in size. No ureteral calculus or hydronephrosis is detected. The aorta is nonaneurysmal. The small and large bowel loops are of normal caliber. There is no obstruction. There is no free fluid identified. The bladder and uterus are unremarkable. Nonspecific soft tissue nodularity in the left para-midline subcutaneous tissues of the lower abdomen is noted measuring 13 mm. The bony structures are nonacute. IMPRESSION: 1. Left renal cortical scarring with nonobstructing left-sided nephrolithiasis. No definite ureteral calculus or hydronephrosis is detected. 2. Nonspecific soft tissue nodule in the subcutaneous tissues of the anterior abdominal wall, as described. The study is otherwise unremarkable. Dictated by: Dictated on workstation # [id number]
== END ==
LOC: RAD 14:44
PROVIDERS: ATTEND Urology
DX: N20.0 Calculus of kidney (principal)
CPT/HCPCS: 74176